=== PATIENT | male | born 1955 | race Caucasian/White ===

== ENCOUNTER 2017-12-29 10:16 | Outpatient (CLI) | payer OTHER ==
[~2017-12-29 10:16] MED LIST: NORVASC2.5 MG
== END 2017-12-29 10:22 | disposition home or self-care (01) ==
LOC: RX STUDY 10:16
DX: K22.0 Achalasia of cardia (principal)

== ENCOUNTER 2024-10-25 07:30 | Outpatient (CLI) | payer OTHER | END 2024-10-25 07:38 | disposition home or self-care (01) | LOC: TOM 07:30 | PROVIDERS: ATTEND Internal Medicine Gastroenterology | DX: Z86.0100 Personal history of colon polyps, unspecified (principal) ==

== ENCOUNTER 2024-11-27 13:30 | Outpatient (CLI) | payer OTHER | END 2024-11-27 13:34 | disposition home or self-care (01) | LOC: MRI 13:30 | PROVIDERS: ATTEND Internal Medicine Gastroenterology | DX: K76.9 Liver disease, unspecified (principal) | CPT/HCPCS: 74183; Q9965 ==